=== PATIENT | male | born 2000 | race Caucasian/White ===

== ENCOUNTER 2019-09-19 10:27 | Emergency (ER) | payer OTHER ==
[2019-09-19 11:06] VITALS: RESP 18
[2019-09-19] MEDS ORDERED: ONDANSETRON 4 MG/2 ML VIAL IVP STA (11:37)
[2019-09-19] MEDS ORDERED: SODIUM CHLORIDE 0.9% 1,000 ML IV STA (11:37)
--- NOTE | 2019-09-19 11:56 | XR ---
EXAMINATION TYPE: XR KUB DATE OF EXAM: 09/19/2019 11:52 AM CLINICAL HISTORY: Right lower quadrant pain. History of nephrolithiasis. TECHNIQUE: Single supine KUB image of the abdomen is obtained. COMPARISON: None. FINDINGS: Scattered gas is seen in nondilated small bowel loops. Gas and fecal material is seen in no ndilated colon. The lung bases are clear and the osseous structures are intact. Very mild levoscolios is of the lumbar spine may be positional. Dysraphism of L5 is incidentally seen. Punctate probable le ft renal calculus. IMPRESSION: 1. Punctate probable left renal calculus. 2. Nonobstructive bowel gas pattern.
[2019-09-19 12:12] LABS: Basophils # (A) 0.1 k/uL (0-0.2); Basophils % (A) 0 %; Eosinophils # (A) 0.1 k/uL (0-0.7); Eosinophils % (A) 0 %; HCT 47.2 % (39.0-53.0); HGB 16.7 gm/dL (13.0-17.5); Lymphocytes % (A) 7 %; MCH 31.9 pg (25.0-35.0); MCHC 35.4 g/dL (31.0-37.0); Mean Platelet Volume 7.2; Monocytes # (A) 0.6 k/uL (0-1.0); Monocytes % (A) 5 %; Neutrophils # (A) 12.3 k/uL (1.3-7.7); Neutrophils % (A) 86 %; Platelet Count 337 k/uL (150-450); RBC 5.25 m/uL (4.30-5.90); RDW 11.7 % (11.5-15.5); WBC 14.2 k/uL (4.0-11.0)
[2019-09-19 12:13] LABS: ALT 20 U/L (4-49); AST 27 U/L (17-59); African American GFR (CKD) >90 (>60 ml/min/1.73 sqM); Albumin 5.2 g/dL (3.5-5.0); Alkaline Phosphatase 69 U/L (38-126); Amylase 44 U/L (30-110); Anion Gap 11 mmol/L; Blood Urea Nitrogen 17 mg/dL (9-20); Calcium 10.5 mg/dL (8.4-10.2); Carbon Dioxide 27 mmol/L (22-30); Chloride 102 mmol/L (98-107); Glucose 122 mg/dL (74-99); Non-African American GFR(CKD) >90 (>60 ml/min/1.73 sqM); Potassium 4.4 mmol/L (3.5-5.1); Sodium 140 mmol/L (137-145); Total Bilirubin 0.7 mg/dL (0.2-1.3); Total Protein 8.2 g/dL (6.3-8.2)
--- NOTE | 2019-09-19 12:34 | ED ---
Abdominal Pain HPI - General Chief Complaint: Abdominal Pain Stated Complaint: Kidney stone pain Time Seen by Provider: 09/19/19 11:13 Source: patient Mode of arrival: ambulatory Limitations: no limitations - History of Present Illness Initial Comments: Patient is a 18-year-old male presenting to emergency Department with complaints of right-sided abdominal pain that started early this morning. Patient states he went to a different ER a few weeks ago with same sort of pain in the right lower quadrant and was diagnosed with a right-sided kidney stone. Patient states his symptoms improved. Patient states he started having right lower quadrant pain around 8 AM this morning and did take a Toradol and then an [place] without relief of symptoms so he came to the ER for evaluation. Patient states his pain feels similar to previous Episode. Patient does admit to mild nausea and no appetite. Patient denies fever, chills, diarrhea, urinary complaints. Patient denies history of abdominal surgeries. He had normal bowel movement yesterday. There are no other complaints at this time. Upon arrival to the ER, his vital signs are stable, afebrile. - Related Data Previous Rx's Medication Instructions Recorded Ketorolac [Toradol] 10 mg PO Q8HR #15 tab 09/19/19 Ondansetron Odt [Zofran Odt] 4 mg PO Q8HR PRN #10 tab 09/19/19 Allergies Allergy/AdvReac Type Severity Reaction Status Date / Time No Known Allergies Allergy Verified 09/19/19 11:03 Review of Systems ROS Statement: Those systems with pertinent positive or pertinent negative responses have been documented in the HPI. ROS Other: All systems not noted in ROS Statement are negative. Past Medical History Additional Past Medical History / Comment(s): kidney stones, crohns History of Any Multi-Drug Resistant Organisms: None Reported Past Surgical History: No Surgical Hx Reported Past Psychological History: No Psychological Hx Reported Smoking Status: Never smoker Past Alcohol Use History: None Reported Past Drug Use History: None Reported General Exam - General Exam Comments Initial Comments: GENERAL: Well-appearing, well-nourished and in no acute distress. HEAD: Atraumatic, normocephalic. EYES: Pupils equal round and reactive to light, extraocular movements intact, sclera anicteric, conjunctiva are normal. ENT: TMs normal, nares patent, oropharynx clear without exudates. Moist mucous membranes. NECK: Normal range of motion, supple without lymphadenopathy or JVD. LUNGS: Breath sounds clear to auscultation bilaterally and equal. No wheezes rales or rhonchi. HEART: Regular rate and rhythm without murmurs, rubs or gallops. ABDOMEN: Mild tenderness to the right lower quadrant, suprapubic area. No flank pain tenderness. Soft, normoactive bowel sounds. No guarding, no rebound. No samy s appreciated. : Deferred EXTREMITIES: Normal range of motion, no pitting or edema. No clubbing or cyanosis. NEUROLOGICAL: Normal speech, normal gait. PSYCH: Normal mood, normal affect. SKIN: Warm, Dry, normal turgor, no rashes or lesions noted. Limitations: no limitations Course Vital Signs 09/19/19 09/19/19 11:04 13:58 Temperature 97.8 F 98.3 F Pulse Rate 88 92 Respiratory 18 18 Rate Blood Pressure 150/96 145/84 O2 Sat by Pulse 97 99 Oximetry Medical Decision Making - Medical Decision Making Patient is 18-year-old male presenting with right sided abdominal pain since early this morning. Patient was recently diagnosed from a different ER with a right renal stone. Patient is slight leukocytosis of 14.2, rest of labs show no acute abnormalities. UA shows large amount of blood and RBCs. No signs of UTI. KUB shows probable left renal calculus, no right renal colic Yassin. No other acute abnormalities. Upon reevaluation the patient, patient continues to be pain-free. I discussed these findings with the patient and suggest this is most likely a passing renal stone. Patient will continue with Toradol, Flomax, Zofran. He is in agreement with this plan of care. He does have an appointment with a urologist, Dr. Barcenas next week. Return parameters were discussed with the patient he verbalizes understanding. He is stable for discharge this time. Case discussed with Dr. Myrick. - Lab Data Result diagrams: 09/19/19 11:45 09/19/19 11:45 Lab Results 09/19/19 09/19/19 09/19/19 Range/Units 11:45 11:45 12:50 WBC 14.2 H (4.0-11.0) k/uL RBC 5.25 (4.30-5.90) m/uL Hgb 16.7 (13.0-17.5) gm/dL Hct 47.2 (39.0-53.0) % MCV 90.0 (80.0-100.0) fL MCH 31.9 (25.0-35.0) pg MCHC 35.4 (31.0-37.0) g/dL RDW 11.7 (11.5-15.5) % Plt Count 337 (150-450) k/uL Neutrophils % 86 % Lymphocytes % 7 % Monocytes % 5 % Eosinophils % 0 % Basophils % 0 % Neutrophils # 12.3 H (1.3-7.7) k/uL Lymphocytes # 1.0 (1.0-4.8) k/uL Monocytes # 0.6 (0-1.0) k/uL Eosinophils # 0.1 (0-0.7) k/uL Basophils # 0.1 (0-0.2) k/uL Sodium 140 (137-145) mmol/L Potassium 4.4 (3.5-5.1) mmol/L Chloride 102 (98-107) mmol/L Carbon Dioxide 27 (22-30) mmol/L Anion Gap 11 mmol/L BUN 17 (9-20) mg/dL Creatinine 1.05 (0.66-1.25) mg/dL Est GFR (CKD-EPI)AfAm >90 (>60 ml/min/1.73 sqM) Est GFR (CKD-EPI)NonAf >90 (>60 ml/min/1.73 sqM) Glucose 122 H (74-99) mg/dL Calcium 10.5 H (8.4-10.2) mg/dL Total Bilirubin 0.7 (0.2-1.3) mg/dL AST 27 (17-59) U/L ALT 20 (4-49) U/L Alkaline Phosphatase 69 (38-126) U/L Total Protein 8.2 (6.3-8.2) g/dL Albumin 5.2 H (3.5-5.0) g/dL Amylase 44 (30-110) U/L Lipase 73 (23-300) U/L Urine Color Yellow Urine Appearance Cloudy (Clear) Urine pH 6.0 (5.0-8.0) Ur Specific [place] 1.023 (1.001-1.035) Urine Protein 1+ H (Negative) Urine Glucose (UA) Negative (Negative) Urine Ketones Negative (Negative) Urine Blood Large H (Negative) Urine Nitrite Negative (Negative) Urine Bilirubin Negative (Negative) Urine Urobilinogen <2.0 (<2.0) mg/dL Ur Leukocyte Esterase Negative (Negative) Urine RBC 180 H (0-5) /hpf Urine WBC 7 H (0-5) /hpf Amorphous Sediment Rare H (None) /hpf Urine Bacteria Rare H (None) /hpf Hyaline Casts 6 H (0-2) /lpf Urine Mucus Many H (None) /hpf Disposition Clinical Impression: Right renal stone, Abdominal pain Disposition: HOME SELF-CARE Condition: Stable Instructions (If sedation given, give patient instructions): Kidney Stones (ED) Additional Instructions: Please return to the Emergency Department if symptoms worsen or any other concerns. Continue with Toradol, Flomax, Zofran as needed. Prescriptions: Ketorolac [Toradol] 10 mg PO Q8HR #15 tab Ondansetron Odt [Zofran Odt] 4 mg PO Q8HR PRN #10 tab PRN Reason: Nausea Is patient prescribed a controlled substance at d/c from ED?: No Referrals: None,Stated [Primary Care Provider] - 1-2 days
[2019-09-19 13:20] LABS: Amorphous Sediment,Urine Rare /hpf; Appearance,Urine Cloudy (Clear); Bacteria,Urine Rare /hpf; Bilirubin,Urine Negative (Negative); Blood,Urine Large (Negative); Color,Urine Yellow; Glucose,Urine (UA) Negative (Negative); Hyaline Casts,Urine 6 /lpf (0-2); Ketones,Urine Negative (Negative); Leukocyte Esterase,Urine Negative (Negative); Mucus,Urine Many /hpf; Nitrite,Urine Negative (Negative); Protein,Urine 1+ (Negative); RBC,Urine 180 /hpf (0-5); Specific Gravity,Urine 1.023 (1.001-1.035); Urobilinogen,Urine <2.0 mg/dL (<2.0); WBC,Urine 7 /hpf (0-5)
[2019-09-19 13:59] VITALS: BP 145/84; PULSE 92; TEMP 98.3
== END 2019-09-19 13:59 | disposition home or self-care (01) ==
LOC: EC 10:27
DX: N20.0 Calculus of kidney (principal)
CPT/HCPCS: 36415; 80053; 82150; 83690; 85025; 81001; 74018; 99284; J2405